=== PATIENT | female | born 1990 | race Caucasian/White ===

== ENCOUNTER 2022-10-06 13:30 | Outpatient (CLI) | payer OTHER, SELFPAY ==
--- NOTE | ~2022-10-06 | XR_ITS ---
EXAMINATION: XR abdomen obstructive series DATE: 10/06/2022 13:47 INDICATION: Epigastric pain TECHNIQUE: Supine and upright views of the abdomen. FINDINGS: No prior studies for comparison. The visualized lung parenchyma is normal.. There is a nonobstructive bowel gas pattern. Gas and stool are seen throughout the colon to the level of the rectum. There is no free air. There are cholecyst ectomy clips in the right upper abdomen. There is an IUD in the pelvis. IMPRESSION: 1. No acute abdominal abnormality. Reviewed, dictated and finalized at location B. BUYER
== END 2022-10-06 13:31 | disposition home or self-care (01) ==
LOC: ANHBWCIMG 13:31
PROVIDERS: PCP Family Medicine; Visit Provider Family Medicine
DX: R10.13 Epigastric pain (principal)
CPT/HCPCS: 74019

== ENCOUNTER 2023-09-03 08:08 | Outpatient (CLI) | payer OTHER, SELFPAY ==
[2023-09-03 08:53] LABS: Hematocrit 43.7 % (37.0-47.0); Hemoglobin 14.1 g/dL (12.0-15.0); Mean Corpuscular HGB Conc 32.3 g/dl (32-36); Mean Corpuscular Hemoglobin 30.3 pg (26-34); Mean Platelet Volume 10.1 fl (7.4-10.4); Platelet Count Result 304 k/mm3 (150-375); Red Blood Count 4.65 M/mm3 (4.2-5.4); Red Cell Distribution Width 12.6 % (11.5-14.5); White Blood Count 5.3 K/mm3 (4.5-10.0)
[2023-09-03 09:02] LABS: Alanine Aminotransferase 21 U/L (6-35); Albumin Level 4.5 g/dL (3.5-5.1); Alkaline Phosphatase 73 U/L (38-126); Anion Gap 9 mmol/L (8-16); Aspartate Amino Transferase 23 U/L (14-36); Bilirubin,Total 0.8 mg/dL (0.2-1.3); Blood Urea Nitrogen 16 mg/dL (7-17); Calcium 9.1 mg/dL (8.4-10.2); Carbon Dioxide 23 mmol/L (22-30); Chloride 105 mmol/L (98-107); Cholesterol 200 mg/dL (0-200); Estimated Glomerular Filt Rate > 60; Glucose 101 mg/dL (65-110); HDL Direct 48 mg/dL; Potassium 4.5 mmol/L (3.4-5.0); Sodium 137 mmol/L (137-145); Triglycerides 41 mg/dL (<150)
[2023-09-03 09:13] LABS: LDL Cholesterol Direct 119 mg/dL
[2023-09-03 09:32] LABS: Hemoglobin A1C 5.2 % (<5.7)
[2023-09-07 06:01] LABS: Insulin Level Total 2.8 uIU/mL (<=18.4)
== END 2023-09-03 08:09 | disposition home or self-care (01) ==
PROVIDERS: PCP Nurse Practitioner Adult Health; Visit Provider Nurse Practitioner Adult Health
DX: Z13.9 Encounter for screening, unspecified (principal); E66.9 Obesity, unspecified
CPT/HCPCS: 36415; 80053; 80061; 83036; 83525; 83527; 84443; 85027

== ENCOUNTER 2024-07-09 10:14 | Outpatient (CLI) | payer OTHER, SELFPAY ==
[2024-07-09 15:30] LABS: Iron 81 ug/dL (37-170)
[2024-07-09 15:40] LABS: Percent Iron Saturation 23 % (20-50)
[2024-07-09 16:03] LABS: Thyroid Stimulating Hormone Reflex 0.875 uIU/mL (0.465-4.68)
[2024-07-13 23:04] LABS: Testosterone Free 4.2 pg/mL (0.1-6.4); Testosterone Total 48 ng/dL (2-45)
[2024-07-14 02:28] LABS: FSH 7.9 mIU/mL; Progesterone <0.5 ng/mL; Prolactin 6.2 ng/mL
[2024-07-14 03:04] LABS: DHEA-Sulfate 123 mcg/dL (19-237)
[2024-07-14 23:04] LABS: Anti Mullerian Hormone,Female 0.88 ng/mL (0.36-10.07)
[2024-07-18 19:45] LABS: Estradiol, Ultrasensitive 52 pg/mL
== END 2024-07-09 10:15 | disposition home or self-care (01) ==
LOC: ANHGOSHLAB 10:15
PROVIDERS: PCP Nurse Practitioner Adult Health; Visit Provider Obstetrics & Gynecology
DX: N93.9 Abnormal uterine and vaginal bleeding, unspecified (principal)
CPT/HCPCS: 36415; 82627; 82670; 82728; 83001; 83498; 83540; 83550; 84144; 84146; 84402; 84403; 84443

== ENCOUNTER 2024-08-20 16:43 | Outpatient (CLI) | payer OTHER, SELFPAY ==
[2024-08-20 17:32] LABS: Beta HCG Quantitative < 2.39 mIU/ML
== END 2024-08-20 16:44 | disposition home or self-care (01) ==
LOC: ANHLAB 16:45
PROVIDERS: PCP Nurse Practitioner Adult Health; Visit Provider Student in an Organized Health Care Education/Training Program
DX: Z30.9 Encounter for contraceptive management, unspecified (principal)
CPT/HCPCS: 36415; 84702

== ENCOUNTER 2024-12-24 08:56 | Emergency (ER) | payer OTHER, SELFPAY ==
--- NOTE | ~2024-12-24 | CT_ITS ---
CT of the Abdomen and Pelvis: Indication: Abdominal pain Technique: 2.5 mm axial scans were obtained through the abdomen and pelvis following intravenous adm inistration of 100 cc of Omnipaque 350. Dose reduction technique was used on this scan by utilizing a utomated exposure control and iterative reconstruction technique. The dose-length product (DLP) was 1 531.70 mGy-cm. Findings: Scans through the lung bases are unremarkable. Small hiatal hernia present. The liver, spleen, pancreas, adrenals and kidneys are within normal limits. Cholecystectomy clips are present. No evidence of aortic aneurysm. No lymphadenopathy. No bowel obstruction or bowel wall thickening. There is no evidence to suggest acute appendicitis. Images through the pelvis were performed. Urinary bladder unremarkable. IUD in place. No significant adnexal mass seen. No ascites. Impression: Small hiatal hernia. No other significant abnormality. Reviewed, dictated and finalized at [facility]ASER Impression: Small hiatal hernia. No other significant abnormality.
[2024-12-24 08:58] VITALS: BP 127/88; PULSE 88; TEMP 36.7; O2SAT 100
--- OUTSIDE RECORDS SUMMARY | 2024-12-24 09:17 | XMS_ITS ---
Author Organization [facility] Address [address] [place] [address] Care Team Providers Care Cheese Processor Name Role Phone Jayesh Park Primary Care Provider UnavailPing [place] Unavailable [phone] ZZ-Migration, Provider Unavailable Unavailab le [facility] Encounter Medications Medication SIG (Take, Route, Frequency, Duration) Notes Start Date End Date Status Ipratropium [place] 21 MCG/INH 2 SPRAY(S) INTRANASALLY 3 TIMES A DAY for 30 DAY(S) *Please review and pick correct strength-formulat ion from [facility] options. If intended option is not shown, discontinue and re-order from Quick Search* 02/23/2023 Active Propranolol HCl ER 80 MG 1 cap(s) orally once a day Active Levocetirizine Dihydrochloride 5 MG 1 tab(s) orally once a day (in the evening) for 30 day(s) 02/23/2023 Active Montelukast Sodium 10 MG 1 tab(s) orally once a day Active Rizatriptan Benzoate 10 MG 1 tab(s) orally once a day Active Encounters Encounter Location Date Provider Diagnosis [facility] [address] [place] [address] 04/28/2024 Provider ZZ-Migration Allergic rhinitis due to pollen J30.1 Assessments Encounter Date Diagnosis (ICD Code) Assessment Notes Treatment Notes Treatment Clinical Notes Section Notes 04/28/2024 Allergic rhinitis due to pollen (ICD-10 - J30.1) Plan Of Treatment Medication Medication Name Sig Start Date Stop Date Notes Ipratropium [place] 21 MCG/INH 2 SPRAY(S) INTRANASALLY 3 TIMES A DAY for 30 DAY(S) 02/23/2023 *Please review and pick correct strength-formulatio n from [facility] options. If intended option is not shown, discontinue and re-order from Quick Search* Levocetirizine Dihydrochloride 5 MG 1 tab(s) orally once a day (in the evening) for 30 day(s) 02/23/2023 Progress Notes * NATHDeniseeDOB:1990 (34 yo F)Acc No.[id number]:04/28/2024 Patient: Cheryl RIVERO Provider: Yordy Tamayo :1990 A ge:33 Y S ex:Female Date:04/28/2024 Address:[address] [place], [place] [id number] Pcp:Jayesh Park Subjective: * Chief Complaints: * [address] [facility] Conversion Encounter. * Medical History: * Medications: T aking Propranolol HCl ER 80 MG Capsule Extended Release 24 Hour 1 cap(s) orally once a day , Taking Montelukast Sodium 10 MG Tablet 1 tab(s) orally once a day , Taking Rizatriptan Benzoate 10 MG Tablet 1 tab(s) orally once a day Objective: * Vitals: Assessment: * Assessment: 1. A llergic rhinitis due to pollen - J30.1 (Primary) Plan: * Treatment: * Billing Information: * Visit Code: * Procedure Codes: * Electronic signature of Mao LYNN-Migration on 12/24/2024 at 09:16 AM WARD AIDE Sign off status: Pending * Provider: Yordy Tamayo Date: 0 04/28/2024 Generated for Julia becerril/Jose/Keyshawn on: 0 12/24/2024 09:16 AM WARD AIDE
--- OUTSIDE RECORDS SUMMARY | 2024-12-24 09:17 | XMS_ITS | Clinical Summary ---
Author Organization [address] Address [address] [place] [address] Care Team Providers Care Hot Mill Supervisor Name Role Phone Unknown, Notinfile Primary Care Provider Unavail able Allergies Active Allergy Reactions Criticality Noted Date Comments Cheratussin Nausea And Vomiting Low 03/07/2015 Medications rizatriptan (MAXALT) 10 mg tablet 2 Active levonorgestreL (Mirena) IUD 1 each by intrauterine route Active nortriptyline (PAMELOR) 10 mg capsuleIndicati ons:Epigastric pain Take 2 capsules (20 mg total) by mouth nightly 60 capsule 3 Active Active Problems No known active problems Surgical History Surgery Date Site/Laterality Comments CHOLECYSTECTOMY BARIATRIC SURGERY Medical History Medical History Date Comments Obesity Social History Tobacco Use Types Packs/Day Years Used Date Smoking Tobacco: Never Personal Safety Answer Date Recorded Getting School Help Needed Not on file 11/17 Comments Unknown Sex and Gender Information Value Date Recorded Sex Assigned at Not on file Legal Sex Female 10:11 AM CDT Gender Identity Not on file Sexual Orientation Not on file Obstetrics History Last Filed Vital Signs Vital Sign Reading Time Taken Comments Blood Pressure 115/81 11/24/2022 9:59 AM HARNESS CLEANER Pulse 65 11/24/2022 9:59 AM HARNESS CLEANER Temperature 36.3 C (97.3 F) 11/24/2022 9:59 AM HARNESS CLEANER Respiratory Rate 16 04/21/2022 4:55 PM CDT Oxygen Saturation 94% 11/24/2022 9:59 AM HARNESS CLEANER Inhaled Oxygen Concentration - - Weight 115.7 kg (255 lb) 11/24/2022 9:59 AM HARNESS CLEANER Height 165.1 cm (5' 5 ) 11/24/2022 9:59 AM HARNESS CLEANER Body Mass Index 42.43 11/24/2022 9:59 AM HARNESS CLEANER Plan of Treatment Health Maintenance Due Date Last Done Comments Cervical Cancer Screening 1989 Depression Screening 1989 Hepatitis C Screening 1989 Varicella Vaccines (1 of 2 - 13+ 2-dose series) 2002 Hepatitis B Screening 2007 Regular Well Visit/Exam 18-64 2007 Covid-19 Vaccine (3 - 2023- season) 2024 07/24/2022, 10/24/2021 Influenza Vaccine (#1) 2024 , 09/05/2021, 08/05/2020, Additional history exists DTaP/Tdap/Td Vaccine (3 - Td or Tdap) 08/18/2032 08/18/2022, 04/23/2022, 06/12/2004 HPV Vaccines Aged Out No longer eligi ble based on patient's age to complete this topic Pneumococcal vaccine <65 Aged Out No longer eligible based on patient's age to complete this topic Insurance [facility] Address: [facility] [address] [place] [address] [facility] Address: [facility] [address] [place] [address] Care Teams Hot Mill Supervisor Relationship Specialty Start Date End Date Unknown, Notinfile PCP - General 04/21/22
--- OUTSIDE RECORDS SUMMARY | 2024-12-24 09:17 | XMS_ITS | Referral Summary ---
Author Organization [address] Address [address] [place] [address] Care Team Providers Care Textile Slitting Machine Operator Name Role Phone Unknown, Notinfile Primary Care [...] Active Active Problems No known active problems Social History Tobacco Use Types Packs/Day Years Used Date Smoking Tobacco: Never Personal Safety Answer Date Recorded Getting School Help Needed Not on file 11/17 Comments Unknown Sex and Gender Information Value Date Recorded Sex Assigned at Not on file Legal Sex Female 10:11 AM CDT Gender Identity Not on file Sexual Orientation Not on file Last Filed Vital Signs Vital Sign Reading Time Taken Comments Blood Pressure 115/81 11/24/2022 9:59 AM ASSEMBLER 1ST SHIFT Pulse 65 11/24/2022 9:59 AM ASSEMBLER 1ST SHIFT Temperature 36.3 C (97.3 F) 11/24/2022 9:59 AM ASSEMBLER 1ST SHIFT Respiratory Rate 16 04/21/2022 4:55 PM CDT Oxygen Saturation 94% 11/24/2022 9:59 AM ASSEMBLER 1ST SHIFT Inhaled Oxygen Concentration - - Weight 115.7 kg (255 lb) 11/24/2022 9:59 AM ASSEMBLER 1ST SHIFT Height 165.1 cm (5' 5 ) 11/24/2022 9:59 AM ASSEMBLER 1ST SHIFT Body Mass Index 42.43 11/24/2022 9:59 AM ASSEMBLER 1ST SHIFT Plan of Treatment Not on file Insurance [facility] Address: [address] [place] [address] [facility]/PP[facility] Address: [address] [place] [address] [address] [place] [phone] Care Teams Textile Slitting Machine Operator Relationship Specialty Start Date End Date Unknown, Notinfile PCP - General 04/21/22
--- OUTSIDE RECORDS SUMMARY | 2024-12-24 09:17 | XMS_ITS | Encounter Summary ---
Author Organization [facility] Address [address] Harrisn: Epic Prelude ADT [place] [address] Care Team Providers Care Residential Pest Control Technician Name Role Phone Mj Duggan MD Primary Care Provider [phone] Encounter Details Date Type Department Care Team (Late st Contact Info) Description 12/29/1998 Outpatient Historical Dawit Flores MD [address] [facility] [address] [place] [id number] Social History Tobacco Use Types Packs/Day Years Used Date Smoking Tobacco: Never Assessed Comments Unknown Sex and Gender Information Value Date Recorded Sex Assigned at Not on file Legal Sex Female 3:39 AM ACCOUNT OFFICER Gender Identity Not on file Sexual Orientation Not on file documented as of this encounter Plan of Treatment Not on file documented as of this encounter Visit Diagnoses Not on filedocumented in this encounter Care Teams Residential Pest Control Technician Relationship Specialty Start Date End Date Mj Duggan MD [address] [facility] [place] [address] PCP - General Internal Medicine 01/16/18 documented as of this encounter
--- OUTSIDE RECORDS SUMMARY | 2024-12-24 09:17 | XMS_ITS | Clinical Summary ---
Author Organization [facility] Address [address] [place] [address] Care Team Providers Care C Python Developer Name Role Phone Mj Duggan MD Primary Care Provider [phone] Allergies Active Allergy Reactions Criticality Noted Date Comments Cheratussin Nausea and Vomiting Low 03/07/2015 Medications levonorgestreL (Mirena) 20 mcg/24 hours (6 yrs) 52 mg IUD 1 Each by Intrauterine route. Active Active Problems Patient Care Coordination No te Formatting of this note migh t be different from the original. OB-WET SILK HANGER Problem Noted Date Diagnosed Date History of bariatric surgery 01/16/2018 Allergic rhinitis 01/16/2018 Obesity (BMI 35.0-39.9 without comorbidity) 03/2018 Headache disorder 01/16/2018 Irregular uterine bleeding 11/27/2014 Hemorrhagic ovarian cyst 11/27/2014 Resolved Problems Problem Noted Date Diagnosed Date Resolved Date Breakthrough bleeding on Nexplanon 11/27/2014 08/16/2017 Family History Medical History Relation Name Comments Healthy Brother Prostate Cancer Father Adonis [place]argo Breast Cancer Maternal Grandmother Diabetes Mother Carmen [place] Hypertension Mother Carmen [place] Breast Cancer Paternal Grandmother later in life Colon Cancer Neg Hx Ovarian Cancer Neg Hx Relation Name Status Comments Brother Father Adonis [place] Alive Maternal Grandmother Mother Carmen [place] Alive Paternal Grandmother Social History Tobacco Use Types Packs/Day Years Used Date Smoking Tobacco: Never Smokeless Tobacco: Never Alcohol Use Standard Drinks/Week Comments Yes 0 (1 standard drink = 0.6 oz pur e alcohol) rare Feeling Safe Answer Date Recorded Within the last year, have y ou been afraid of your partner or ex-partner? No 02/12/2022 Within the last year, have y ou been humiliated or emotionally abused in other ways by your partner or ex-partner? No Within the last year, have y ou been kicked, hit, slapped, or otherwise physically hurt by your partner or ex-partner? No 02/12/2022 Within the last year, have y ou been raped or forced to have any kind of sexual activity by your partner or ex-partner? No 02/12/2022 Comments No Sex and Gender Information Value Date Recorded Sex Assigned at Not on file Legal Sex Female 3:39 AM CLOTH PAINTER Gender Identity Not on file Sexual Orientation Not on file Occupation Industry Job Start Date Job End Date Not on file Not on file Not on file Not on file Last Filed Vital Signs Vital Sign Reading Time Taken Comments Blood Pressure 112/76 02/12/2022 8:58 AM CDT Pulse 78 07/18/2021 2:02 PM CDT Temperature 36.8 C (98.2 F) 07/18/2021 2:02 PM CDT Respiratory Rate 15 07/18/2021 2:02 PM CDT Oxygen Saturation 100% 07/18/2021 2:02 PM CDT Inhaled Oxygen Concentration - - Weight 115.7 kg (255 lb 1.6 oz) 02/12/2022 8:58 AM CDT Height 165.1 cm (5' 5 ) 02/12/2022 8:58 AM CDT Body Mass Index 42.45 02/12/2022 8:58 AM CDT Plan of Treatment Health Maintenance Due Date Last Done Comments DTAP/TDAP/TD VACCINES (2 - Tdap) 06/13/2004 06/12/2004 HEPATITIS B VACCINES (1 of 3 - 19+ 3-dose series) 2008 INFLUENZA VACCINE (#1) 2024 11/21/2021, 2019 COVID-19 Vaccine (2 - season) 2024 10/24/2021 Preventative Visit- Commercial 11/14/2024 02/12/2022, 08/05/2020, 01/16/2018, Additional history exists CERVICAL CANCER SCREENING 02/12/20252021, 01/09/2014, 01/09/2014 HPV VACCINES Aged Out No longer eligi ble based on patient's age to complete this topic PNEUMOCOCCAL VACCINE 0-64 YEARS Aged Out No longer eligible based on patient's age to complete this topic Procedures Procedure Name Priority Date/Time Associated Diagnosis Comments CERV/VAG CYTO AGE BASED SCREEN PAP Routine 02/12/2022 9:10 AM CDT Screening for cervical cancer from Last 3 Months or Most Recently Relevant to Health Maintenance Results * CERV/VAG CYTO AGE BASED SCREEN PAP (02/12/2022 9:10 AM CDT) SEE NOTE [facility] Comment: This order for age-based cervical cancer and STI screening follows ACOG guidelines(PB 168, 140, TQM691). See individual assays for performing site location. CLINICAL INFORMATION [facility] Comment:Information not prov ided LAST MENSTRUAL PERIOD [facility] Comment:INFORMATION NOT PROV IDED PREV PAP: [facility] Comment:INFORMATION NOT PROV IDED PREV BX: [facility] Comment:INFORMATION NOT PROV IDED SOURCE [facility] Comment:Endocervix ADEQUACY: [facility] Comment: Satisfactory for evaluation. Endocervical/transformation zone component present. Age and/or menstrual status not provided PAP INTERP [facility] Comment:Negative for intraep ithelial lesion or malignancy. COMMENT (PAP TEST) [facility] Comment: This Pap test has been evaluated with computer assisted technology. SEGMENTAL PAVING SUPERVISOR: [facility] Comment: JUVENAL, CT(ASCP) CT screening location: [place] [address] [place] [address] SEE NOTE [facility] Comment: EXPLANATORY NOTE: The Pap is a screening test for cervical cancer. It is not a diagnostic test and is subject to false negative and false positive results. It is most reliable when a satisfactory sample, regularly obtained, is submitted with relevant clinical findings and history, and when the Pap result is evaluated along with historic and current clinical information. HPV E6/E7 Not Detected Not Detected [facility] Comment: Methodology: Furnace Repair Mechanic-Mediated Amplification This assay detects E6/E7 viral messenger RNA (mRNA) from 14 high-risk HPV types (16,18,31,33,35,39,45,51,52,56,58,59,66,68). The analytical performance characteristics of this assay have been determined by [employer]. The modifications have not been cleared or approved by the FDA. This assay has been validated pursuant to the CLIA regulations and is used for clinical purposes. For additional information, please refer to http://education.[employer]/faq/YTO454g2 (This link if provided for information/ educational purposes only.) Test [facility]formed at: [facility] [address] [place] [address] Josh Gregorio D.O., MPH SL Genital SWAB OF ENDOCERVIX / Unknown 02/12/2022 9:10 AM CDT 02/13/2022 12:55 AM CDT April Garcia NP PATHOLOGY/CYTOLOGY ORD ERABLES Final Result [facility] [address] [place] [address] from Last 3 Months or Most Recently Relevant to Health Maintenance Insurance [place] [id number] [facility] Care Teams C Python Developer Relationship Specialty Start Date End Date Mj Duggan MD [address] [place] [address] [place] [address] PCP - General Internal Medicine 01/16/18
--- OUTSIDE RECORDS SUMMARY | 2024-12-24 09:17 | XMS_ITS | Patient Health Record ---
Author Organization [facility] Address [address] [place] [address] Care Team Providers Care Clay Burner Name Role Phone Jayesh Park Primary Care Provider Ping [place] Unavailable [phone] ZZ-Migration, Provider Unavailable Unavailab le Allergies No Known Allergies Reason For Referral No Information Medications Medication SIG (Take, Route, Frequency, Duration) Notes Start Date End Date Status LEVOCETIRIZINE DIHYDROCHLORIDE 5 mg 1 tab(s) orally once a day (in the evening) for 30 day(s) 02/23/2023 Active Ipratropium [place] 21 MCG/INH 2 SPRAY(S) INTRANASALLY 3 TIMES A DAY for 30 DAY(S) *Please review and pick correct strength-formulat ion from [employer] options. If intended option is not shown, discontinue and re-order from Quick Search* 02/23/2023 Active RIZATRIPTAN 10 mg 1 tab(s) orally once a day Active Propranolol HCl ER 80 MG 1 cap(s) orally once a day Active Levocetirizine Dihydrochloride 5 MG 1 tab(s) orally once a day (in the evening) for 30 day(s) 02/23/2023 Active Montelukast Sodium 10 MG 1 tab(s) orally once a day Active Rizatriptan Benzoate 10 MG 1 tab(s) orally once a day Active IPRATROPIUM BROMIDE NASAL 21 mcg/inh 2 spray(s) intranasally 3 times a day for 30 day(s) 02/23/2023 Active MONTELUKAST 10 mg 1 tab(s) orally once a day Active PROPRANOLOL 80 mg 1 cap(s) orally once a day Active Immunizations Vaccine Route Administration Date Status Comme nts NOC Influenza-Afluria PFS Unknown 08/23/2022 Administer ed Portal Information Social History Tobacco Use: Social History Observation Description Date Details (start date - stop date) Never Smoker NA - NA Smoking Smart Form: Question Answer Notes Are you a: never smoker Problems Problem Type SNOMED Code ICD Code Onset Dates Problem Status W/U Status Risk Notes Problem Chronic allergic conjunctivitis (59417580) Other chronic allergic conjunctivitis (H10.45) Active confirmed Problem Allergic rhinitis caused by pollen (disorder) (95361772) Allergic rhinitis due to pollen (J30.1) Active confirmed Problem Allergic rhinitis (06700645) Other allergic rhinitis (J30.89) Active confirmed Problem Dermatitis (054813152) Dermatitis, unspecified (L30.9) Active confirmed Problem Allergic rhinitis caused by animal hair and dander (818815411552661) Allergic rhinitis due to animal (cat) (dog) hair and dander (J30.81) Active confirmed Encounters Encounter Location Date Provider Diagnosis [address] [address] 04/28/2024 Provider Reid Allergic rhinitis due to pollen J30.1 Assessments Encounter Date Diagnosis (ICD Code) Assessment Notes Treatment Notes Treatment Clinical Notes Section Notes 04/28/2024 Allergic rhinitis due to pollen (ICD-10 - J30.1) Plan Of Treatment No Information Insurance Providers Payer Name Payer Address Payer Phone Subscriber Number Group Number Insured Name Patient Relationship to Insured Coverage Start Date Coverage End Date [facility] [address] [place] [phone] [id number] Cheryl Davis Self - patient is the insured Medical (General) History Medical History History ICD Code Migraine headache Surgical History Surgery Date(Month/Year) Cholecystectomy 12/25/2020 Weight loss 07/31/2015
[2024-12-24 09:35] VITALS: BP 129/95; PULSE 85; RESP 16; TEMP 36.6; O2SAT 100
[2024-12-24 09:48] VITALS: BP 129/95; PULSE 80; RESP 16; TEMP 36.6; O2SAT 98
--- NOTE | 2024-12-24 10:06 | ED_ITS ---
HPI - Nausea/Vomiting/Diarrhea General Chief complaint: Nausea/Vomiting/Diarrhea Stated complaint: N/V x 2 weeks, back pain Time Seen by Provider: 12/24/24 09:37 Source: patient Mode of arrival: ambulatory Limitations: no limitations History of Present Illness HPI Narrative: This is a 34-year-old female presents to emergency department for abdominal discomfort. Reports she has been experiencing some nausea over the last 2 weeks. She has had upper abdominal pain since last night. Reports eating pizza prior to pain starting. She does not have her gallbladder. She has also had bariatric surgery. Reports some vomiting today as well as diarrhea. Denies fevers. Related Data Home Medications ?Medication ?Instructions ?Recorded ?Confirmed ?Last Taken ?Type levonorgestrel (Mirena) 1 device intrauterine ONCE 10/02/24 10/02/24 Unknown History Allergies Allergy/AdvReac Type Severity Reaction Status Date / Time No Known Allergies Allergy Verified 12/24/24 09:49 Review of Systems 2 Review of Systems: CONSTITUTIONAL: Denies fever GASTROINTESTINAL: Reports abdominal pain, nausea, vomiting, and diarrhea. GENITOURINARY: Denies dysuria All systems reviewed & are unremarkable except as noted in HPI and below PMFSH Past Medical History Medical History (Updated 12/24/24 @ 12:47 by Desiree Gandara PA-C) Encounter for removal of intrauterine contraceptive device Vaginal discharge Surgical History Surgical History (Updated 10/02/24 @ 15:23 by Beti Davis CMA) H/O gynecological procedure mirena iud insertion 2018 Mirena IUD removal reinsertion 2023 Family History Family History Father Cancer Mother Diabetes mellitus Hypertension Depression Grandparent Diabetes mellitus Hypertension Grandparent Cerebrovascular accident Other Breast cancer Social History Social History Smoking status: Never smoker Alcohol intake: never Substance use: never Substance use type: does not use Lack of Transportation: No Lack of Food: Never True Current Housing: I Have Housing Concerned About Future Housing: No Difficulty Paying Gas/Electric Bills: No Difficulty Paying for Meds: No Currently Unemployed: No Education: Trade/Vocational Certificate Difficulty w/ Childcare or Family Care: No Living arrangements: alone Occupation/Education: occupation 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 HEAD: Normocephalic, atraumatic. EYES: EOMI. ENT: Nares clear, no rhinorrhea or epistaxis. Mucous membranes moist. Oropharynx without tonsillar hypertrophy exudate or other lesions. Bilateral TMs pearly renee non-bulging NECK: Supple. No adenopathy or masses. CHEST: Clear to auscultation. No respiratory distress. No wheezes rales or rhonchi HEART: Regular rate and rhythm. No murmur heard. Normal peripheral pulses. ABDOMEN: Soft, nondistended, normal active bowel sounds. Mild tenderness to palpation throughout the upper abdomen, without guarding EXTREMITIES: Normal range of motion. No edema. SKIN: Warm, dry, no rash. NEURO: No focal deficits. Alert and oriented x3. PSYCH: Normal mood and affect Course Course Emergency Course: patient updated on her workup and agrees with plan of care Vital Signs Vital signs: Vital Signs Temperature 98.0 F 12/24/24 08:58 Pulse Rate 88 12/24/24 08:58 Blood Pressure 127/88 12/24/24 08:58 Pulse Oximetry 100 12/24/24 08:58 Oxygen Delivery Room Air 12/24/24 08:58 Temperature 98 F 12/24/24 09:48 Pulse Rate 99 12/24/24 10:18 Respiratory Rate 16 12/24/24 09:48 Blood Pressure 121/83 12/24/24 10:18 Pulse Oximetry 98 12/24/24 09:48 Oxygen Delivery Room Air 12/24/24 09:35 MDM - Nausea/Vomiting/Diarrhea MDM Narrative Medical decision making narrative: Patient presents to the emergency department for nausea, epigastric abdominal discomfort. She is afebrile and nontoxic appearing. Her vitals are stable. Cbc without leukocytosis. Metabolic panel some evidence of dehydration. Urine also shows evidence of dehydration. No signs of infection. test is negative. CT abdomen pelvis shows a small hiatal hernia, otherwise no acute findings. Patient updated on her workup and agrees with plan of care. She is to have further follow-up outpatient. She was given warnings to return to the ER Differential Diagnosis Differential diagnosis: Likely food poisoning, gastroenteritis, dehydration and other (GERD, gastritis) Lab Data Attestation: I reviewed the patient's lab results. 12/24/24 10:08 12/24/24 10:08 Labs: Lab Results 12/24/24 12/24/24 Range/Units 10:08 10:12 WBC 7.3 (4.5-10.0) K/mm3 RBC 4.91 (4.2-5.4) M/mm3 Hgb 14.4 (12.0-15.0) g/dL Hct 44.2 (37.0-47.0) % MCV 90.0 (80-100) fl MCH 29.3 (26-34) pg MCHC 32.6 (32-36) g/dl RDW 12.3 (11.5-14.5) % Plt Count 289 (150-375) k/mm3 MPV 10.0 (7.4-10.4) fl Immature Gran % (Auto) 0.3 (0-0.5) % Neut % (Auto) 88.7 H (45.5-73.1) % Lymph % (Auto) 5.9 L (18.3-44.2) % [place] % (Auto) 4.4 (2.6-8.5) % Eos % (Auto) 0.3 (0-4.4) % Baso % (Auto) 0.4 (0.2-1.2) % Lymph # (Auto) 0.43 L (0.9-3.2) K/mm3 [place] # (Auto) 0.3 (0.1-0.6) K/mm3 Eos # (Auto) 0.0 (0-0.3) K/mm3 Baso # (Auto) 0.0 (0.0-0.1) K/mm3 Abs Immat Gran (auto) 0.02 (0.00-0.031) K/mm3 Absolute Neuts (auto) 6.5 (1.3-6.7) K/mm3 Absolute Nucleated RBC 0.000 (0.0-0.012) K/mm3 Nucleated RBC % 0.0 (0.0-0.2) % Sodium 137 (137-145) mmol/L Potassium 4.1 (3.4-5.0) mmol/L Chloride 105 (98-107) mmol/L Carbon Dioxide 21 L (22-30) mmol/L Anion Gap 11 (4-12) mmol/L BUN 19 H (7-17) mg/dL Creatinine 0.58 L (0.7-1.0) mg/dL Estim Creat Clear Calc 148 ml/min Estimated GFR > 60 (59 - ) Glucose 106 (65-110) mg/dL Calcium 8.8 (8.4-10.2) mg/dL Total Bilirubin 0.9 (0.2-1.3) mg/dL AST 23 (14-36) U/L ALT 19 (6-35) U/L Alkaline Phosphatase 92 (38-126) U/L Total Protein 8.0 (6.3-8.2) g/dL Albumin 4.2 (3.5-5.1) g/dL Lipase 33 (23-300) U/L Urine Color Yellow (Yellow) Urine Appearance Cloudy H (Clear) Urine pH 5.0 (5.0-9.0) Ur Specific [place] 1.030 (1.001-1.035) Urine Protein Negative (Negative) mg/dL Urine Glucose (UA) Negative (Negative) mg/dL Urine Ketones Trace H (Negative) mg/dL Ur Blood (Man) Negative (Negative) Urine Nitrate Negative (Negative) Urine Bilirubin Negative (Negative) Urine Urobilinogen 0.2 (<2.0) mg/dL Leukocyte Esterase Rfl Negative (Negative) MICHAEL/UL Urine RBC 0-2 (0-2) /hpf Urine WBC 0-5 (0-3) /hpf Ur Squamous Epith Cells Occasional (Few) /hpf Urine Bacteria None seen /hpf Urine Casts 0-2 POC Urine HCG, Qual Negative (Negative) Influenza A (RT-PCR) Negative (Negative) Influenza B (RT-PCR) Negative (Negative) SARS-CoV-2 RNA (RT-PCR) Negative (Negative) Imaging Data Radiologist's impression: ITS Impressions Abdomen/Pelvis CT 12/24/24 11:24 Impression: Small hiatal hernia. No other significant abnormality. Critical Care Time Critical Care Time Critical Care Time: No Discharge Plan Discharge Clinical Impression: Acute epigastric pain Patient Disposition: Home, Self-Care Condition: Stable Instructions: Epigastric Pain (ED) Additional Instructions: Return to the ER if you experience fever, worsening abdominal pain with nausea and vomiting, you are unable to keep down liquids or solids, or any other symptoms that are concerning to you Remain well hydrated. Avoid spicy/acidic foods. Avoid anti-inflammatories. Avoid eating just before bedtime. Ondansetron as needed for nausea. Take Pepcid daily Follow up with primary care doctor and/or gastroenterology Patient Language: Icelandic Prescriptions: New ondansetron 4 mg tablet,disintegrating 4 mg PO Q8H PRN (Reason: nausea and vomiting) Qty: 14 0RF No Action Mirena 21 mcg/24hr (up to 8 yrs) 52 mg intrauterine device 1 device intrauterine ONCE Rx Instructions: as a single dose Follow-up/Referrals: Maurizio Gama MD [Physician] - Carlos Valadez MD [Physician] - Paulina Cary APRN [Primary Care Provider] -
--- OUTSIDE RECORDS SUMMARY | 2024-12-24 10:12 | XMS_ITS | Referral Summary ---
Author Organization [address] Address [address] [place] [address] Care Team Providers Care Correspondence School Teacher Name Role Phone Unknown, Notinfile Primary Care [...] Comments Blood Pressure 115/81 11/24/2022 9:59 AM STOCK LAYER Pulse 65 11/24/2022 9:59 AM STOCK LAYER Temperature 36.3 C (97.3 F) 11/24/2022 9:59 AM STOCK LAYER Respiratory Rate 16 04/21/2022 4:55 PM CDT Oxygen Saturation 94% 11/24/2022 9:59 AM STOCK LAYER Inhaled Oxygen Concentration - - Weight 115.7 kg (255 lb) 11/24/2022 9:59 AM STOCK LAYER Height 165.1 cm (5' 5 ) 11/24/2022 9:59 AM STOCK LAYER Body Mass Index 42.43 11/24/2022 9:59 AM STOCK LAYER Plan of Treatment Not on file Insurance [address] [id number] Care Teams Correspondence School Teacher Relationship Specialty Start Date End Date Unknown, Notinfile PCP - General 04/21/22
--- OUTSIDE RECORDS SUMMARY | 2024-12-24 10:12 | XMS_ITS | Encounter Summary ---
Author Organization [facility] Address [address] Amaya: Epic Prelude ADT [place] [address] Care Team Providers Care Aerial Survey Technician Name Role Phone Mj Duggan MD Primary Care Provider [phone] Encounter Details Date Type Department Care Team (Late st Contact Info) Description 06/22/1999 Outpatient Historical Brenda Pinedo MD [address] [place] [address] Social History Tobacco Use Types Packs/Day Years Used Date Smoking Tobacco: Never Assessed Comments Unknown Sex and Gender Information Value Date Recorded Sex Assigned at Not on file Legal Sex Female 3:39 AM CLIENT MANAGER Gender Identity Not on file Sexual Orientation Not on file documented as of this encounter Plan of Treatment Not on file documented as of this encounter Visit Diagnoses Not on filedocumented in this encounter Care Teams Aerial Survey Technician Relationship Specialty [place] [address] [place] [address] [place] [address] PCP - General Internal Medicine 01/16/18 documented as of this encounter
--- OUTSIDE RECORDS SUMMARY | 2024-12-24 10:12 | XMS_ITS | Encounter Summary ---
Author Organization [facility] Address [address] Harrisn: Epic Prelude ADT [place] [address] Care Team Providers Care Hand Or Machine Paster Name Role Phone Mj Duggan MD Primary Care Provider [phone] Encounter Details Date Type Department Care Team (Late st Contact Info) Description 12/29/1998 Outpatient Historical Dawit Flores MD [address] [facility] [address] [place] [id number] Social History Tobacco Use Types Packs/Day Years Used Date Smoking Tobacco: Never Assessed Comments Unknown Sex and Gender Information Value Date Recorded Sex Assigned at Not on file Legal Sex Female 3:39 AM MATE FISHING VESSEL Gender Identity Not on file Sexual Orientation Not on file documented as of this encounter Plan of Treatment Not on file documented as of this encounter Visit Diagnoses Not on filedocumented in this encounter Care Teams Hand Or Machine Paster Relationship Specialty Start Date End Date Mj Duggan MD [address] [facility] [place] [address] PCP - General Internal Medicine 01/16/18 documented as of this encounter
--- OUTSIDE RECORDS SUMMARY | 2024-12-24 10:12 | XMS_ITS | Clinical Summary ---
Author Organization [address] Address [address] [place] [address] Care Team Providers Care Electric Motor Analyst Name Role Phone Unknown, Notinfile Primary Care [...] Comments Blood Pressure 115/81 11/24/2022 9:59 AM ALCOHOLIC COUNSELOR Pulse 65 11/24/2022 9:59 AM ALCOHOLIC COUNSELOR Temperature 36.3 C (97.3 F) 11/24/2022 9:59 AM ALCOHOLIC COUNSELOR Respiratory Rate 16 04/21/2022 4:55 PM CDT Oxygen Saturation 94% 11/24/2022 9:59 AM ALCOHOLIC COUNSELOR Inhaled Oxygen Concentration - - Weight 115.7 kg (255 lb) 11/24/2022 9:59 AM ALCOHOLIC COUNSELOR Height 165.1 cm (5' 5 ) 11/24/2022 9:59 AM ALCOHOLIC COUNSELOR Body Mass Index 42.43 11/24/2022 9:59 AM ALCOHOLIC COUNSELOR Plan of Treatment Health Maintenance Due Date [...] to complete this topic Insurance CHOICE PLUS Care Teams Electric Motor Analyst Relationship Specialty Start Date End Date Unknown, Notinfile PCP - General 04/21/22
--- OUTSIDE RECORDS SUMMARY | 2024-12-24 10:13 | XMS_ITS | Clinical Summary ---
Author Organization [facility] Address [address] [place] [address] Care Team Providers Care Skidder Loader Name Role Phone Mj Duggan MD Primary Care Provider [phone] Allergies Active Allergy Reactions Criticality Noted Date Comments Cheratussin Nausea and Vomiting Low 03/07/2015 Medications levonorgestreL (Mirena) 20 mcg/24 hours (6 yrs) 52 mg IUD 1 Each by Intrauterine route. Active Active Problems Patient Care Coordination No te Formatting of this note migh t be different from the original. OB-RETAIL SHIFT MANAGER Problem Noted Date Diagnosed Date History of [...] on file Legal Sex Female 3:39 AM PULP GRINDER Gender Identity Not on file Sexual Orientation [...] PAP (02/12/2022 9:10 AM CDT) SEE NOTE [facility] Comment: This order for age-based cervical cancer and STI screening follows ACOG guidelines(PB 168, 140, SPG703). See individual assays for performing site location. CLINICAL INFORMATION [facility] Comment:Information not prov ided LAST MENSTRUAL PERIOD [facility] Comment:INFORMATION NOT PROV IDED PREV PAP: [facility] Comment:INFORMATION NOT PROV IDED PREV BX: [facility] Comment:INFORMATION NOT PROV IDED SOURCE [facility] Comment:Endocervix ADEQUACY: [facility] Comment: Satisfactory for evaluation. Endocervical/transformation zone component present. Age and/or menstrual status not provided PAP INTERP [facility] Comment:Negative for intraep ithelial lesion or malignancy. COMMENT (PAP TEST) [facility] Comment: This Pap test has been evaluated with computer assisted technology. ELECTRIC TRUCK OPERATOR: [facility] Comment: JUVENAL, CT(ASCP) CT screening location: [place] [address] [place] [address] SEE NOTE [facility] Comment: EXPLANATORY NOTE: The Pap is a [...] information. HPV E6/E7 Not Detected Not Detected [facility] Comment: Methodology: Sleeping Car Service Attendant-Mediated Amplification This assay detects E6/E7 viral messenger RNA (mRNA) from 14 high-risk HPV types (16,18,31,33,35,39,45,51,52,56,58,59,66,68). The analytical performance characteristics of this assay have been determined by [facility]. The modifications have not been cleared or approved by the FDA. This assay has been validated pursuant to the CLIA regulations and is used for clinical purposes. For additional information, please refer to http://education.JobScout/faq/EKW340r8 (This link if provided for information/ educational purposes only.) Test Performed [facility]: [facility] [address] [place] [address] Josh Gregorio D.O., MPH SL Genital SWAB OF ENDOCERVIX / Unknown 02/12/2022 9:10 AM CDT 02/13/2022 12:55 AM CDT April Garcia NP PATHOLOGY/CYTOLOGY ORD ERABLES Final Result [facility] [address] [place] [address] from Last 3 Months or Most Recently Relevant to Health Maintenance Insurance [place] [id number] [facility] Care Teams Skidder Loader Relationship Specialty Start Date End Date Mj Duggan MD [address] [place] [address] [place] [address] PCP - General Internal Medicine 01/16/18
[2024-12-24 10:14] LABS: BEDSIDEPREGUCG Negative (Negative)
[2024-12-24 10:18] VITALS: BP 121/83; BP 128/81; BP 133/90; PULSE 83; PULSE 91; PULSE 99
[2024-12-24 10:22] LABS: Basophils Percent Auto 0.4 % (0.2-1.2); Eosinophils Percent Auto 0.3 % (0-4.4); Hematocrit 44.2 % (37.0-47.0); Hemoglobin 14.4 g/dL (12.0-15.0); Immature Granulocyte Absolute 0.02 K/mm3 (0.00-0.031); Immature Granulocyte Percent A 0.3 % (0-0.5); Lymphocytes Absolute Auto 0.43 K/mm3 (0.9-3.2); Lymphocytes Percent Auto 5.9 % (18.3-44.2); Mean Corpuscular HGB Conc 32.6 g/dl (32-36); Mean Corpuscular Hemoglobin 29.3 pg (26-34); Monocytes Absolute Auto 0.3 K/mm3 (0.1-0.6); Monocytes Percent Auto 4.4 % (2.6-8.5); Neutrophils Absolute Auto 6.5 K/mm3 (1.3-6.7); Neutrophils Percent Auto 88.7 % (45.5-73.1); Platelet Count Result 289 k/mm3 (150-375); Red Blood Count 4.91 M/mm3 (4.2-5.4); Red Cell Distribution Width 12.3 % (11.5-14.5); White Blood Count 7.3 K/mm3 (4.5-10.0)
[2024-12-24 10:28] LABS: Add Urine Microscopic? YES; Appearance Urine Cloudy (Clear); Bacteria Urine None Seen /hpf; Bilirubin Urine Negative (Negative); Blood Urine Negative (Negative); Color Urine Yellow (Yellow); Glucose Urine UA Negative (Negative); Ketones Urine Trace mg/dL (Negative); Leukocyte Esterase Ur Negative LEU/UL (Negative); Nitrate Urine Negative (Negative); Non Pathogenic Casts 0-2; Protein Urine Negative (Negative); RBC Urine 0-2 /hpf (0-2); Squamous Epithelial Cell Urine Occasional /hpf (Few); Urobilinogen Urine 0.2 mg/dL (<2.0); WBC Urine 0-5 /hpf (0-3)
[2024-12-24 10:32] LABS: Alanine Aminotransferase 19 U/L (6-35); Albumin Level 4.2 g/dL (3.5-5.1); Alkaline Phosphatase 92 U/L (38-126); Anion Gap 11 mmol/L (4-12); Aspartate Amino Transferase 23 U/L (14-36); Bilirubin,Total 0.9 mg/dL (0.2-1.3); Blood Urea Nitrogen 19 mg/dL (7-17); Calcium 8.8 mg/dL (8.4-10.2); Carbon Dioxide 21 mmol/L (22-30); Chloride 105 mmol/L (98-107); Estimated CRCL calculation 148 ml/min; Estimated Glomerular Filt Rate > 60; Glucose 106 mg/dL (65-110); Lipase 33 U/L (23-300); Potassium 4.1 mmol/L (3.4-5.0); Sodium 137 mmol/L (137-145)
[2024-12-24] MEDS: SODIUM CHLORIDE 0.9% IV 1,000 ML 999 ML IV CONT (10:46)
[2024-12-24] MEDS: ONDANSETRON INJ 4 MG/2 ML VIAL IV PUSH (10:46)
[2024-12-24 10:59] LABS: Influenza A QL RT-PCR Negative (Negative); Influenza B QL RT-PCR Negative (Negative); SARS-CoV-2 RNA PCR Negative (Negative)
[2024-12-24] MEDS: FAMOTIDINE 20 MG/2 ML VIAL IV PUSH (11:44)
[2024-12-24 13:00] VITALS: BP 123/81; PULSE 81; RESP 14; TEMP 36.4; O2SAT 100
== END 2024-12-24 13:02 | disposition home or self-care (01) ==
PROVIDERS: Emergency Provider Physician Assistant; PCP Nurse Practitioner Adult Health
DX: R10.13 Epigastric pain (principal); Z20.822 Contact with and (suspected) exposure to COVID-19; Z98.84 Bariatric surgery status; Z97.5 Presence of (intrauterine) contraceptive device; Z90.49 Acquired absence of other specified parts of digestive tract; K44.9 Diaphragmatic hernia without obstruction or gangrene
CPT/HCPCS: 36415; 74177; 80053; 81001; 81025; 83690; 85025; 87636; 96361; 96374; 96375; 99284; J2405; J7030; Q9967

== ENCOUNTER 2025-01-21 00:52 | Day surgery (SDC) | payer OTHER, SELFPAY ==
[2025-01-11 13:34] VITALS: BMI 44.0
--- OUTSIDE RECORDS SUMMARY | 2025-01-21 00:55 | XMS_ITS | Clinical Summary ---
Author Organization [address] Address [address] [place] [address] Care Team Providers Care Church Administrator Name Role Phone Unknown, Notinfile Primary Care [...] Comments Blood Pressure 115/81 11/24/2022 9:59 AM PRESS BREAKER Pulse 65 11/24/2022 9:59 AM PRESS BREAKER Temperature 36.3 C (97.3 F) 11/24/2022 9:59 AM PRESS BREAKER Respiratory Rate 16 04/21/2022 4:55 PM CDT Oxygen Saturation 94% 11/24/2022 9:59 AM PRESS BREAKER Inhaled Oxygen Concentration - - Weight 115.7 kg (255 lb) 11/24/2022 9:59 AM PRESS BREAKER Height 165.1 cm (5' 5 ) 11/24/2022 9:59 AM PRESS BREAKER Body Mass Index 42.43 11/24/2022 9:59 AM PRESS BREAKER Plan of Treatment Health Maintenance Due Date [...] to complete this topic [place] [address] [place] [address] Care Teams Church Administrator Relationship Specialty Start Date End Date Unknown, Notinfile PCP - General 04/21/22
--- OUTSIDE RECORDS SUMMARY | 2025-01-21 00:55 | XMS_ITS | Referral Summary ---
Author Organization [address] Address [address] [place] [address] Care Team Providers Care Manager Sound Name Role Phone Unknown, Notinfile Primary Care [...] Comments Blood Pressure 115/81 11/24/2022 9:59 AM SANE NURSE Pulse 65 11/24/2022 9:59 AM SANE NURSE Temperature 36.3 C (97.3 F) 11/24/2022 9:59 AM SANE NURSE Respiratory Rate 16 04/21/2022 4:55 PM CDT Oxygen Saturation 94% 11/24/2022 9:59 AM SANE NURSE Inhaled Oxygen Concentration - - Weight 115.7 kg (255 lb) 11/24/2022 9:59 AM SANE NURSE Height 165.1 cm (5' 5 ) 11/24/2022 9:59 AM SANE NURSE Body Mass Index 42.43 11/24/2022 9:59 AM SANE NURSE Plan of Treatment Not on file Insurance [address] [id number] Care Teams Manager Sound Relationship Specialty Start Date End Date Unknown, Notinfile PCP - General 04/21/22
--- OUTSIDE RECORDS SUMMARY | 2025-01-21 00:55 | XMS_ITS | Encounter Summary ---
Author Organization [facility] Address [address] Amaya: Epic Prelude ADT [place] [address] Care Team Providers Care Clinical Research Coordinator Name Role Phone Mj Duggan MD Primary Care Provider [phone] Encounter Details Date Type Department Care Team (Late st Contact Info) Description 06/22/1999 Outpatient Historical Brenda Pinedo MD [address] [place] [address] Social History Tobacco Use Types Packs/Day Years Used Date Smoking Tobacco: Never Assessed Comments Unknown Sex and Gender Information Value Date Recorded Sex Assigned at Not on file Legal Sex Female 3:39 AM MANAGER [place] Gender Identity Not on file Sexual Orientation Not on file documented as of this encounter Plan of Treatment Not on file documented as of this encounter Visit Diagnoses Not on filedocumented in this encounter Care Teams Clinical Research Coordinator Relationship Specialty Start Date End Date Mj Duggan MD [address] [facility] [place] [address] PCP - General Internal Medicine 01/16/18 documented as of this encounter
--- OUTSIDE RECORDS SUMMARY | 2025-01-21 00:55 | XMS_ITS | Patient Health Record ---
Author Organization [facility] Address [address] [place] [address] Care Team Providers Care Applied Research Director Name Role Phone Jayesh Park Primary Care Provider Ping Cary Unavailable [phone] [employer]-Migration, Provider Unavailable Unavailab le Allergies No Known Allergies Reason For Referral No Information Medications Medication SIG (Take, Route, Frequency, Duration) Notes Start Date End Date Status LEVOCETIRIZINE DIHYDROCHLORIDE 5 mg 1 tab(s) orally once a day (in the evening) for 30 day(s) 02/23/2023 Active Ipratropium [place] 21 MCG/INH 2 SPRAY(S) INTRANASALLY 3 TIMES A DAY for 30 DAY(S) *Please review and pick correct strength-formulat ion from New.net options. If intended option is not shown, [...] Status Risk Notes Problem Chronic allergic conjunctivitis (05859321) Other chronic allergic conjunctivitis (H10.45) Active confirmed Problem Allergic rhinitis caused by pollen (disorder) (63339502) Allergic rhinitis due to pollen (J30.1) Active confirmed Problem Allergic rhinitis (22980243) Other allergic rhinitis (J30.89) Active confirmed Problem Dermatitis (555124020) Dermatitis, unspecified (L30.9) Active confirmed Problem Allergic rhinitis caused by animal hair and dander (077601522457708) Allergic rhinitis due to animal (cat) (dog) hair and dander (J30.81) Active confirmed Encounters Encounter Location Date Provider Diagnosis [address] [address] 04/28/2024 Provider [place] Allergic rhinitis due to pollen J30.1 Assessments Encounter Date Diagnosis (ICD Code) Assessment Notes Treatment Notes Treatment Clinical Notes Section Notes 04/28/2024 Allergic rhinitis due to pollen (ICD-10 - J30.1) Plan Of Treatment No Information Insurance Providers Payer Name Payer Address Payer Phone Subscriber Number Group Number Insured Name Patient Relationship to Insured Coverage Start Date Coverage End Date [facility] [address] [place] [phone] [id number] Cheryl Davis Self - patient is the insured Medical (General) History Medical History History ICD Code Migraine headache Surgical History Surgery Date(Month/Year) Cholecystectomy 12/25/2020 Weight loss 07/31/2015
--- OUTSIDE RECORDS SUMMARY | 2025-01-21 00:55 | XMS_ITS | Clinical Summary ---
Author Organization [facility] Address [address] [address] Care Team Providers Care Editorial Project Manager Name Role Phone Mj Duggan MD Primary Care Provider Allergies Active Allergy Reactions Criticality Noted Date Comments Cheratussin Nausea and Vomiting Low 03/07/2015 Medications levonorgestreL (Mirena) 20 mcg/24 hours (6 yrs) 52 mg IUD 1 Each by Intrauterine route. Active Active Problems Patient Care Coordination No te Formatting of this note migh t be different from the original. 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 Gender Identity Not on file Sexual Orientation [...] age to complete this topic PNEUMOCOCCAL VACCINE 0-49 YEARS Aged Out No longer eligible based on patient's age to complete this topic Procedures Procedure Name Priority Date/Time Associated Diagnosis Comments CERV/VAG CYTO AGE BASED SCREEN PAP Routine 02/12/2022 9:10 AM CDT Screening for cervical cancer from Last 3 Months or Most Recently Relevant to Health Maintenance Results * CERV/VAG CYTO AGE BASED SCREEN PAP (02/12/2022 9:10 AM CDT) SEE NOTE [facility] Comment: This order for age-based cervical cancer and STI screening follows ACOG guidelines(PB 168, 140, BKG089). See individual assays for performing site location. CLINICAL INFORMATION [facility] Comment:Information not prov ided LAST MENSTRUAL PERIOD [facility] Comment:INFORMATION NOT PROV IDED PREV PAP: [facility] Comment:INFORMATION NOT PROV IDED PREV BX: [facility] Comment:INFORMATION NOT PROV IDED SOURCE [facility] Comment:Endocervix ADEQUACY: [facility] Comment: Satisfactory for evaluation. Endocervical/transformation zone component present. Age and/or menstrual status not provided PAP INTERP [facility] Comment:Negative for intraep ithelial lesion or malignancy. COMMENT (PAP TEST) [facility] Comment: This Pap test has been evaluated with computer assisted technology. DRY CELL TESTER: [facility] Comment: JUVENAL, CT(ASCP) CT screening location: [place] [address] [place] [address] SEE NOTE [facility] Comment: EXPLANATORY NOTE: The Pap is a [...] information. HPV E6/E7 Not Detected Not Detected [facility] Comment: Methodology: Chinese Teacher-Mediated Amplification This assay detects E6/E7 viral messenger RNA (mRNA) from 14 high-risk HPV types (16,18,31,33,35,39,45,51,52,56,58,59,66,68). The analytical performance characteristics of this assay have been determined by [facility]. The modifications have not been cleared or approved by the FDA. This assay has been validated pursuant to the CLIA regulations and is used for clinical purposes. For additional information, please refer to http://education.[employer]/faq/SKF396j9 (This link if provided for information/ educational purposes only.) Test Performed at: [facility] [address] [place] [address] Josh Gregorio D.O., MPH SL Genital SWAB OF ENDOCERVIX / Unknown 02/12/2022 9:10 AM CDT 02/13/2022 12:55 AM CDT April Garcia NP PATHOLOGY/CYTOLOGY ORD ERABLES Final Result [facility] [address] [place] [address] from Last 3 Months or Most Recently Relevant to Health Maintenance Insurance [place] [id number] [facility] Care Teams Editorial Project Manager Relationship Specialty Start Date End Date Mj Duggan MD [address] [place] [address] [place] [address] PCP - General Internal Medicine 01/16/18
--- OUTSIDE RECORDS SUMMARY | 2025-01-21 00:55 | XMS_ITS | Encounter Summary ---
Author Organization [facility] Address [address] 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 [place] [address] PCP - General Internal Medicine 01/16/18 documented as of this encounter
--- OUTSIDE RECORDS SUMMARY | 2025-01-21 00:55 | XMS_ITS ---
Author Organization [facility] Address [address] [place] [address] Care Team Providers Care Dinkey Brakeman Name Role Phone Jayesh Park Primary Care Provider UnavailPing [place] Unavailable [phone] [facility], Provider Unavailable Unavailab le [facility] Encounter Medications Medication SIG (Take, Route, Frequency, Duration) Notes Start Date End Date Status Ipratropium [place] 21 MCG/INH 2 SPRAY(S) INTRANASALLY 3 TIMES A DAY for 30 DAY(S) *Please review and pick correct strength-formulat ion from [facility] options. If intended option is not [...] Active Encounters Encounter Location Date Provider Diagnosis [facility] [address] [place] [address] 04/28/2024 Provider [facility] Allergic rhinitis due to pollen J30.1 Assessments Encounter Date Diagnosis (ICD Code) Assessment Notes Treatment Notes Treatment Clinical Notes Section Notes 04/28/2024 Allergic rhinitis due to pollen (ICD-10 - J30.1) Plan Of Treatment Medication Medication Name Sig Start Date Stop Date Notes Ipratropium [place] 21 MCG/INH 2 SPRAY(S) INTRANASALLY 3 TIMES A DAY for 30 DAY(S) 02/23/2023 *Please review and pick correct strength-formulatio n from [facility] options. If intended option is not shown, discontinue and re-order from Quick [facility]* Levocetirizine Dihydrochloride 5 MG 1 tab(s) orally once a day (in the evening) for 30 day(s) 02/23/2023 Progress Notes * NATHDeniseeDOB:1990 (34 yo F)Acc No.[id number]:04/28/2024 Patient: Cheryl RIVERO Provider: Yordy Tamayo :1990 A ge:33 Y S ex:Female Date:04/28/2024 Address:[address] [place], [place] [id number] Pcp:Jayesh Park Subjective: * Chief Complaints: * [address] [address] [facility] Conversion Encounter. * Medical History: * [...] * Electronic signature of Mao LYNN-Migration on 01/21/2025 at 12:55 AM CDT Sign off status: Pending * Provider: Yordy Tamayo Date: 0 04/28/2024 Generated for Julia becerril/Jose/Keyshawn on: 0 01/21/2025 12:55 AM CDT
[2025-01-21 07:52] VITALS: BP 137/82; PULSE 66; RESP 16; TEMP 36.4; O2SAT 100
[2025-01-21 07:57] LABS: BEDSIDEPREGUCG Negative (Negative)
[2025-01-21] MEDS: LACTATED RINGERS 1,000 ML 150 ML IV CONT (08:04)
--- NOTE | 2025-01-21 08:27 | P.HP_ITS ---
History of Present Illness History of Present Illness Consent: Risks, benefits, and alternatives have been discussed and questions answered. Patient agrees to proceed with procedure. Chief complaint: epigastric pain Narrative: Cheryl Davis is a 34 year old female here for egd, she had gastric sleeve years ago, also cholecystectomy. She is complaining of intermittent nausea, CT scan only small hiatal hernia Review of Systems Review of Systems: All systems reviewed & are unremarkable except as noted in HPI and below PMFSH Past Medical History Medical History (Updated 01/09/25 @ 08:58 by TRISTIN Olivarez) Nausea Encounter for removal of intrauterine contraceptive device Vaginal discharge Surgical History Surgical History (Updated 01/09/25 @ 08:58 by TRISTIN Olivarez) History of cholecystectomy H/O gastric sleeve H/O gynecological procedure mirena iud insertion 2018 Mirena IUD removal reinsertion 2023 Family History Family History Father Cancer Mother Diabetes mellitus Hypertension Depression Grandparent Diabetes mellitus Hypertension Grandparent Cerebrovascular accident Other Breast cancer Social History Social History Smoking status: Never smoker Alcohol intake: never Substance use: never Substance use type: does not use Lack of Transportation: No Lack of Food: Never True Current Housing: I Have Housing Concerned About Future Housing: No Difficulty Paying Gas/Electric Bills: No Difficulty Paying for Meds: No Currently Unemployed: No Education: Trade/Vocational Certificate Difficulty w/ Childcare or Family Care: No Living arrangements: with family Occupation/Education: occupation 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 Gender identity (if verbalized by the patient): Female Sexual Orientation (if Verbalized by the Patient): Straight or Heterosexual Spiritual care concerns: No Meds Home Medications and Allergies Home Medications ?Medication ?Instructions ?Recorded ?Confirmed ?Type levonorgestrel (Mirena) 1 device intrauterine ONCE 10/02/24 01/11/25 History famotidine 40 mg tablet (Pepcid) 40 mg PO DAILY 1 month #30 tabs 01/09/25 01/21/25 Rx Allergies Allergy/AdvReac Type Severity Reaction Status Date / Time No Known Allergies Allergy Verified 01/21/25 07:50 Vital Signs Vital Signs - 24 hr 01/21/25 07:52 Temperature 97.6 F Pulse Rate 66 Respiratory Rate 16 Blood Pressure 137/82 Pulse Oximetry 100 Oxygen Delivery Room Air Exam Const: General: comfortable and no acute distress HENMT: Face/Nose/Sinus: Normal nares present Eyes: General: appearance normal, both eyes and all related structures Neck: Neck: no JVD Resp: Auscultation: clear to auscultation bilaterally Cardio: Rate: regular rate Rhythm: regular rhythm GI: Inspection: non-distended GI Palp: Yes Soft to palpation Skin: General skin exam: normal color Neuro: Speech: normal speech Extrem: General: normal to inspection Psych: Mental Status: mental status grossly normal Assessment and Plan Assessment and plan (1) Nausea: Code(s): R11.0 - Nausea Status: Acute Assessment and Plan: egd with bx (2) H/O gastric sleeve: Code(s): Z90.3 - Acquired absence of stomach [part of] Status: Acute (3) History of cholecystectomy: Code(s): Z90.49 - Acquired absence of other specified parts of digestive tract Status: Acute
--- NOTE | 2025-01-21 08:28 | P.PNAN_ITS ---
Anes - Initial Pre Proc Eval Procedure: Operation Date: 01/21/25 08:45 Proposed Procedures p Esophagogastroduodenoscopy EGD - Carlos Valadez MD Date/Time: 01/21/25 08:28 Surgeon: Carlos Valadez MD Pre Op Diagnosis: epigastric pain Patient Data Age: 34 Gender: F Height: 1.65 m Weight: 120.6 kg Last Vital Signs Temp 36.4 C 01/21/25 07:52 Pulse 66 01/21/25 07:52 Resp 16 01/21/25 07:52 BP 137/82 01/21/25 07:52 Pulse Ox 100 01/21/25 07:52 O2 Del Method Room Air 01/21/25 07:52 Allergies Allergy/AdvReac Type Severity Reaction Status Date / Time No Known Allergies Allergy Verified 01/21/25 07:50 Home Medications ?Medication ?Instructions ?Recorded ?Confirmed ?Type levonorgestrel (Mirena) 1 device intrauterine ONCE 10/02/24 01/11/25 History famotidine 40 mg tablet (Pepcid) 40 mg PO DAILY 1 month #30 tabs 01/09/25 01/21/25 Rx Laboratory Tests 01/21/25 07:52 POC Urine HCG, Qual Negative (Negative) Patient hx anesthesia problems: none Family hx anesthesia problems: none Results Review: All pre-operative results and documents have been reviewed as part of the pre- operative evaluation. [facility] Past Medical History Medical History Nausea Encounter for removal of intrauterine contraceptive device Vaginal discharge Surgical History Surgical History History of cholecystectomy H/O gastric sleeve H/O gynecological procedure mirena iud insertion 2018 Mirena IUD removal reinsertion 2023 Family History Family History Father Cancer Mother Diabetes mellitus Hypertension Depression Grandparent Diabetes mellitus Hypertension Grandparent Cerebrovascular accident Other Breast cancer Social History Social History Smoking status: Never smoker Alcohol intake: never Substance use: never Substance use type: does not use Lack of Transportation: No Lack of Food: Never True Current Housing: I Have Housing Concerned About Future Housing: No Difficulty Paying Gas/Electric Bills: No Difficulty Paying for Meds: No Currently Unemployed: No Education: Trade/Vocational Certificate Difficulty w/ Childcare or Family Care: No Living arrangements: with family Occupation/Education: occupation 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 Gender identity (if verbalized by the patient): Female Sexual Orientation (if Verbalized by the Patient): Straight or Heterosexual Spiritual care concerns: No Anes - Eval Final PreProcedure Day of Procedure 01/21/25 08:28 Patient weight: morbidly obese Heart: regular rate and rhythm Lungs: clear to auscultation Airway: Mallampati scale class II Neurological: alert and oriented Last oral intake: >/= 8 hours ASA classification: III Emergent: no Anesthetic plan: proceed Anesthesia type and monitoring: general GIVS and standard monitoring Results Review: All pre-operative results and documents have been reviewed as part of the pre- operative evaluation. Informed Consent: The patient's anesthetic plan and its attendant risks and benefits were discussed with the patient/family/POA. Questions were solicited and answers provided to the satisfaction of the patient/family/POA.
[2025-01-21 08:40] VITALS: BP 111/68; PULSE 62; RESP 20; O2SAT 99
[2025-01-21 08:50] VITALS: BP 120/79; PULSE 58; RESP 18; O2SAT 100
[2025-01-21 09:00] VITALS: BP 126/91; PULSE 60; RESP 18; O2SAT 100
== END 2025-01-21 09:05 | disposition home or self-care (01) ==
PROVIDERS: Anesthesiology; PCP Nurse Practitioner Adult Health; Referring Provider Nurse Practitioner Family; Visit Provider Internal Medicine Gastroenterology
PROC: 0DJ08ZZ Inspection of Upper Intestinal Tract, Via Natural or Artificial Opening Endoscopic (ICD-10-PCS; CPT 43239; principal; 2025-01-21 08:45)
DX: K29.80 Duodenitis without bleeding (principal); R11.0 Nausea; K44.9 Diaphragmatic hernia without obstruction or gangrene; K29.70 Gastritis, unspecified, without bleeding; Z98.84 Bariatric surgery status; E66.01 Morbid (severe) obesity due to excess calories; Z68.41 Body mass index [BMI] 40.0-44.9, adult; Z90.49 Acquired absence of other specified parts of digestive tract
CPT/HCPCS: 43239; 88305; J2003; J2704; J7120